=== PATIENT | female | born 1990 | race Hispanic/Latino ===

== ENCOUNTER 2018-08-31 23:11 | Emergency (ER) | payer MEDICAID, OTHER ==
--- NOTE | 2018-08-31 23:38 | C.PDOC ---
History Of Present Illness 28 year old female, , 19 weeks presents to the ED c/o abdominal cramping that started tonight. Patient states she is with twins, LMP was April 19. Patient denies fever, chills, nausea, vomit, diarrhea, vaginal bleeding, vaginal discharge, back pain. Time Seen by Provider: 08/31/18 23:38 Chief Complaint (Nursing): Abdominal Pain History Per: Patient History/Exam Limitations: no limitations Onset/Duration Of Symptoms: Hrs Current Symptoms Are (Timing): Still Present Location Of Pain/Discomfort: Diffuse Quality Of Discomfort: Cramping Associated Symptoms: denies: Nausea, Vomiting, Diarrhea, Urinary Symptoms Alleviating Factors: None Recent travel outside of the [place]: No Additional History Per: Patient Abnormal Vaginal Bleeding: No Last Menstral Period: April 19 : 1 Para: 0 Past Medical History Reviewed: Historical Data, Nursing Documentation, Vital Signs Vital Signs: Last Vital Signs Temp 98.6 F 08/31/18 23:24 Pulse 94 H 08/31/18 23:24 Resp 20 08/31/18 23:24 BP 111/69 08/31/18 23:24 Pulse Ox 99 08/31/18 23:24 - Medical History PMH: No Chronic Diseases Comment Only: Arthritis (PT STATED SHE IS BEING TESTED FOR) Surgical History: No Surg Hx Family History: States: Unknown Family Hx - Social History Hx Alcohol Use: Yes Hx Substance Use: Yes - Immunization History Hx Tetanus Toxoid Vaccination: No Hx Influenza Vaccination: No Hx Pneumococcal Vaccination: No Review Of Systems Constitutional: Negative for: Fever, Chills Cardiovascular: Negative for: Chest Pain Respiratory: Negative for: Shortness of Breath Gastrointestinal: Positive for: Abdominal Pain. Negative for: Nausea, Vomiting, Diarrhea Genitourinary: Negative for: Dysuria, Hematuria, Vaginal Discharge, Vaginal Bleeding Musculoskeletal: Negative for: Back Pain Skin: Negative for: Rash Physical Exam - Physical Exam Appears: Non-toxic, No Acute Distress Skin: Warm, Dry Head: Normacephalic Eye(s): bilateral: Normal Inspection Oral Mucosa: Moist Neck: Supple Chest: Symmetrical Cardiovascular: Rhythm Regular Respiratory: No Rales, No Rhonchi, No Wheezing Gastrointestinal/Abdominal: Soft, No Tenderness, No Guarding, No Rebound, Other (gravid) Back: Normal Inspection Extremity: Bilateral: Atraumatic, Normal Color And Temperature, Normal ROM Neurological/Psych: Oriented x3, Normal Speech, Normal Cognition Gait: Steady ED Course And Treatment - Laboratory Results Result Diagrams: 09/01/18 00:27 09/01/18 00:31 O2 Sat by Pulse Oximetry: 99 (ON RA) Pulse Ox Interpretation: Normal - CT Scan/US Pelvic US Other Rad Studies (CT/US): Read By Radiologist, Radiology Report Reviewed CT/US Interpretation: Obstetric ultrasound. Indication: 19 weeks with pain. Technique: Real-time ultrasound images were obtained. Findings: Twin live intrauterine gestation. Estimated gestational age is 18 weeks. Positive heart rate for fetus a and fetus B. Anterior placenta. Closed cervix. Good tone and movement is noted. The heart rate 158 and 140 beats per minute. Impression: Twin, live intrauterine gestation. No abnormality is seen. . Electronically signed on Sep 01, 2018 2:05:06 AM EST by: Margie Garcia M.D., Certified by ABR, MSK, Neuroradiology Progress Note: Plan: - Labs. - UA. - Pelvic US Reevaluation Time: 02:09 Reassessment Condition: Improved Disposition Counseled Patient/Family Regarding: Studies Performed, Diagnosis, Need For Followup - Disposition Disposition: HOME/ ROUTINE Disposition Time: 23:38 Condition: FAIR Additional Instructions: Please follow up with your slackman Instructions: - The Fourth Month Forms: [email or web address] (Greenlandic) - Clinical Impression Clinical Impression: Abdominal pain during - Scribe Statement The provider has reviewed the documentation as recorded by the Scribe El Regalado All medical record entries made by the Scribe were at my direction and personally dictated by me. I have reviewed the chart and agree that the record accurately reflects my personal performance of the history, physical exam, m edical decision making, and the department course for this patient. I have also personally directed, reviewed, and agree with the discharge instructions and disposition.
[2018-09-01 00:30] LABS: BASO % 0.2 % (0.0-2.0); EOS # 0.1 K/uL (0.0-0.7); EOS % 0.6 % (0.0-4.0); LYMPH # 1.5 K/uL (1.0-4.3); LYMPH % 11.1 % (20.0-40.0); MEAN CELL VOLUME 87.9 fL (81.0-99.0); MEAN CORPUSCULAR HEMOGLOBIN 30.4 pg (27.0-31.0); MEAN CORPUSCULAR HGB CONC 34.6 g/dL (33.0-37.0); MEAN PLATELET VOLUME 7.3 fL (7.2-11.7); MONO # 0.5 K/uL (0.0-0.8); MONO % 3.4 % (0.0-10.0); NEUT # 11.2 K/uL (1.8-7.0); NEUT % 84.7 % (50.0-75.0); RBC 3.3 Mil/uL (3.80-5.20); RED CELL DISTRIBUTION WIDTH 13.2 % (11.5-14.5); WHITE BLOOD COUNT 13.2 K/uL (4.8-10.8)
[2018-09-01 00:38] LABS: SQUAMOUS EPITHIAL 24 /hpf (0-5); URINE BACTERIA RARE (<OCC); URINE BILIRUBIN NEGATIVE (NEGATIVE); URINE BLOOD NEGATIVE (NEGATIVE); URINE CLARITY Clear (Clear); URINE COLOR Yellow (YELLOW); URINE GLUCOSE (UA) NORMAL (Normal); URINE LEUKOCYTE ESTERASE NEG Leu/uL (Negative); URINE PROTEIN NEGATIVE (NEGATIVE); URINE UROBILINOGEN NORMAL mg/dL (0.2-1.0)
[2018-09-01 00:49] LABS: BLOOD UREA NITROGEN 7 mg/dL (7-17); CALCIUM 8.1 mg/dl (8.6-10.4); GFR NON-AFRICAN AMERICAN > 60
[2018-09-01 01:17] LABS: ALB/GLOB RATIO 1.1 (1.0-2.1); ALBUMIN 3.1 g/dL (3.5-5.0); ALT/SGPT 20 U/L (9-52); AST/SGOT 18 U/L (14-36)
[2018-09-01 02:29] VITALS: BP 100/61; PULSE 84; RESP 18; TEMP 98.4; O2SAT 98
--- NOTE | 2018-09-01 15:29 | US ---
Date of service: 09/01/2018 PROCEDURE: Obstetrical ultrasound HISTORY: abd pain, 19 weeks COMPARISON: Not available TECHNIQUE: Transabdominal FINDINGS: Twin intrauterine gestation identified. Anterior placenta. No evidence of placenta previa. Cervix closed. It measures 3.5 cm in length. Fetus A in breech presentation. heart rate 158 beats per minute. Biometry yields a gestational age of 18 weeks 5 days. ERIN by ultrasound 01/28/2019. Limited assessment of anatomy demonstrates no abnormality. Anterior abdominal wall intact. Fluid in stomach and urinary bladder. Four chamber heart is demonstrated. No hydronephrosis. No gross abnormality of the spine is evident. Fetus B in breech presentation. heart rate 143 beats per minute. Biometry yields a gestational age of nineteen weeks 0 days. Limited assessment of anatomy demonstrates no abnormality. Anterior abdominal wall intact. Fluid distends the stomach and urinary bladder. No hydronephrosis. Four-chamber heart not adequately demonstrated at this time. No gross abnormality of the spine is evident. IMPRESSION: Twin live intrauterine gestation. Fetus a and B are in breech presentation. cardiac activity demonstrated. No anatomic abnormality. Gestational age is 18 weeks 5 days and 19 weeks 0 days. The preliminary findings for this examination were reported by [facility] at 2:05 a.m. on 09/01/2018. There is concurrence of this report with the preliminary findings.
== END 2018-09-01 02:23 | disposition home or self-care (01) ==
LOC: C.ER 23:11
DX: O26.892 Other specified pregnancy related conditions, second trimester (principal); R10.9 Unspecified abdominal pain; Z3A.19 19 weeks gestation of pregnancy

== ENCOUNTER 2018-10-04 13:40 | Emergency (ER) | payer MEDICAID ==
[2018-10-04 14:12] VITALS: BMI 20.3
[2018-10-04 14:46] LABS: SQUAMOUS EPITHIAL 6 /hpf (0-5); URINE BACTERIA RARE (<OCC); URINE BILIRUBIN NEGATIVE (NEGATIVE); URINE BLOOD 3+ (NEGATIVE); URINE CLARITY Hazy (Clear); URINE COLOR Yellow (YELLOW); URINE GLUCOSE (UA) NORMAL (Normal); URINE LEUKOCYTE ESTERASE TRACE Leu/uL (Negative); URINE PROTEIN NEGATIVE (NEGATIVE); URINE UROBILINOGEN NORMAL mg/dL (0.2-1.0)
--- NOTE | 2018-10-04 15:45 | OBHP ---
Datetime: 10/04/2018 14:25 IP Adm Impression: , intrauterine IP Chief Complaint Other: Pelvic pressure IP Adm Impression Other: twin gestation IP Admit Plan: Discharge home Admit Comment, IP Provider: 28 y.o. , LMP 04/19/18, ERIN 01/24/19, EGA 24 weeks, twin gestation (sp ontaneous; mono-/di-), c/o sudden onset pelvic pressure, 0100 hours, while sleeping, pain scale 04/25. ..."I couldn't sleep any more". Took no meds; pressure subsided. No radiation. No precipitating fact ors. Last had sexual intercourse 3 or 4 nights ago. Denies constipation. Had loose BM x 1, 10/03/18; d rank "Bubble tea" (a normal beverage for her) earlier in the day. Usually has BM QD - firm. States st anding alleviates the discomfort. (+) FM x 2. Jim LOF. (+) white discharge noted yesterday. Also, ( + vagnal spotting noted at 12 noon - in the bathroom after voiding. None since. care: sees MFM affiliated with [facility]. Denies issues to date; except HSV2 outbreak "in the beginnin g of thie . I did not take the medications as prescribed". Denies any other issues. P Ob: Primip P MANAGER PERSONAL: 12 x 6 weeks x 5. 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 Denies abnormal Pap, myomata or ovarian cysts PMH: denies PSH: denies NKDA No food allergiy (+) Latex allergy Meds: not taking vitamins Soc Hx: denies tobaddo, illicit drug or EtOH use. Unemployed. FOB involved. Fam Hx: Mother alive 43 - ovarian cancer survivor; lupus, thyroid disorder. Father alive - estrang ed. Maternal great aunt - - unk cancer. P.E.: as above. WD in NAD. Awake, alert, oriented to time, person and place. Pleasant and cooperat danny - U/A: leuk esterase - trace; all else c/w history - wnl/negative Assessment: 28 y.o. Po, 24 weeks, twin gestation. Pelvic pressure as above .- aetiology unclear. M usculoskeletal on origin, most likely. 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 FHR x 2 - wnl for gestaitonal age. Patient is clinically stable. Plan: 1) Discharge home 2) Reviewed S/S PTL 3) Encouraged to consider suppressive therapy for HSV-2, if offered 4) Encouraged to iintiate taking vitamins 5) Keep next scheduled appointment(s) Pelvic Type - PN: Adequate Extremities - PN: Normal Abdomen - PN: Normal Back - PN: Normal Breast - PN: Not Done Lungs - PN: Normal Heart - PN: Normal Thyroid - PN: Not Done Neurologic - PN: Normal HEENT - PN: Normal General - PN: Normal FHR - Baseline A Provider: 145 Contraction Comments Provider: none Comments, ACOG Physical Exam: Abdomen: Gravid. Soft. non tender i sal quadrants Perineum: dry Speculum: no blood in vault. no active bleeding All other systems reviewed and are negative Gestation - Est Wks by US: 24.0 EGA AdmitDate IP: 24.0 Vital Signs Provider: Reviewed; Within Normal Limits IP Chief Complaint: Maternal discomfort; Other Dilatation, Provider: 0 Effacement, Provider: 0 Station, Provider: N/A Genitourinary Exam: Normal DTRs - PN: Not Done
[2018-10-04 19:15] VITALS: BP 107/60; PULSE 89; RESP 18
== END 2018-10-04 15:00 | disposition home or self-care (01) ==
LOC: C.EROB 13:40
DX: O26.892 Other specified pregnancy related conditions, second trimester (principal); R10.2 Pelvic and perineal pain; Z3A.24 24 weeks gestation of pregnancy